=== PATIENT | male | born 1970 | race Caucasian/White ===

== ENCOUNTER 2018-03-19 16:18 | Emergency (ER) | payer SELFPAY ==
[2018-03-19 18:06] LABS: ANION GAP 15.5 mmol/L (10-20); CHLORIDE,CL 101 mmol/L (98-107); SODIUM,NA 139 mmol/L (136-145)
--- NOTE | 2018-03-19 18:08 | EDM.PDOC ---
ED HPI GENERAL MEDICAL PROBLEM - General Chief Complaint: Cardiovascular Problem Stated Complaint: Irregular heart beat Time Seen by Provider: 03/19/18 17:02 Source of Information: Reports: Patient, Family, RN, RN Notes Reviewed History Limitations: Reports: No Limitations - History of Present Illness INITIAL COMMENTS - FREE TEXT/NARRATIVE: Patient is brought to the ED at [facility] for an irregular heart beat. According to the patients mother, the patient has been having an irregular heart beat "for a while." They have been in contact with [facility] who felt he "needed to be checked out." Patient underwent a right ankle surgery last December. He had been on Lovenox for 14 days after he had ankle surgery. Patient has been stable otherwise. He denies any chest pain or SOB. No focal neurological changes or deficits. He has had issues with lymphedema and is under treatment for that. Mother states they are here to make sure "everything is ok." Onset: Unknown/Unsure - Related Data Allergies Allergy/AdvReac Type Severity Reaction Status Date / Time No Known Allergies Allergy Verified 03/19/18 16:33 Home Meds: Home Meds Aspirin [Adult Low Dose Aspirin EC] 81 mg PO DAILY 03/19/18 [History] Carvedilol [Coreg] 12.5 mg PO BID 03/19/18 [History] Lisinopril/Hydrochlorothiazide [Lisinopril-HCTZ 10-12.5 MG] 1 tab PO DAILY 03/19 [History] oxyCODONE 5 mg PO Q4H PRN 03/19/18 [History] Past Medical History Cardiovascular History: Reports: Afib, Hypertension Respiratory History: Reports: Sleep Apnea Musculoskeletal History: Reports: Fracture Endocrine/Metabolic History: Reports: Obesity/BMI 30+ - Past Surgical History Musculoskeletal Surgical History: Reports: Other (See Below) Other Musculoskeletal Surgeries/Procedures:: ORIF right tib/fib, external fixation right ankle Social & Family History - Tobacco Use Smoking Status *Q: Former Smoker Used Tobacco, but Quit: Yes Month/Year Tobacco Last Used: 0 ED ROS GENERAL - Review of Systems Review Of Systems: See Below Constitutional: Denies: Fever, Chills, Weakness Respiratory: Denies: Shortness of Breath, Cough Cardiovascular: Reports: Edema (chronic 2/2 to right ankle surgery). Denies: Chest Pain, Palpitations GI/Abdominal: Denies: Abdominal Pain, Nausea, Vomiting Skin: Reports: No Symptoms (that are new or recent) Neurological: Denies: Dizziness, Headache, Numbness, Paresthesia, Tingling ED EXAM, GENERAL - Physical Exam Exam: See Below Exam Limited By: No Limitations General Appearance: Alert, No Apparent Distress Respiratory/Chest: No Respiratory Distress, Lungs Clear, Normal Breath Sounds Cardiovascular: Normal Peripheral Pulses, No Murmur, Irregularly Irregular Peripheral Pulses: 2+: Radial (L), Radial (R) GI/Abdominal: Normal Bowel Sounds, Soft, Non-Tender Neurological: Alert, Oriented Skin Exam: Warm, Dry, Intact, Normal Color EKG INTERPRETATION EKG Date: 03/19/18 Time: 16:22 Rhythm: A-Fib Rate (Beats/Min): 71 [place]: Normal P-Wave: Present QRS: Normal ST-T: Depressed QT: Normal [place]/PQ Interval: Absent Comparison: NA - No Prior EKG EKG Interpretation Comments: 1. Controlled Atrial Fibrillation 2. Moderate ST depression Course - Vital Signs Last Recorded V/S: Last Vital Signs Temp 36.6 C 03/19/18 16:20 Pulse 73 03/19/18 16:20 Resp 18 03/19/18 16:20 BP 145/94 H 03/19/18 16:20 Pulse Ox 97 03/19/18 16:20 - Orders/Labs/Meds Orders: Active Orders 24 hr Category Date Time Status COMPREHENSIVE METABOLIC PN,CMP [CHEM] Stat Lab 03/19/18 17:39 Received CREATINE KINASE,CK [CHEM] Stat Lab 03/19/18 17:39 Received TROPONIN I [CHEM] Stat Lab 03/19/18 17:39 Received Labs: Laboratory Tests 03/19/18 03/19/18 Range/Units 17:39 17:39 WBC 7.5 (4.0-10.0) x10^3/uL RBC 4.76 (4.5-6.0) x10^6/uL Hgb 13.9 L (14.0-18.0) g/dL Hct 40.2 (40.0-52.0) % MCV 84.5 (78.0-93.0) fL MCH 29.2 (26.0-32.0) pg MCHC 34.6 (32.0-36.0) g/dL RDW Coeff of Doni 14.1 (10.0-15.0) % Plt Count 281 (130-400) x10^3/uL Neut % (Auto) 50.7 (50.0-80.0) % Lymph % (Auto) 31.2 (25.0-50.0) % [place] % (Auto) 12.7 H (2.0-11.0) % Eos % (Auto) 4.7 H (0.0-4.0) % Baso % (Auto) 0.7 (0.2-1.2) % PT 11.9 H (9.6-11.4) SEC INR 1.1 L (2.0-3.5) Departure - Departure Time of Disposition: 18:09 Disposition: Home, Self-Care 01 Reason for Transfer *Q: Other Condition: Good Clinical Impression: Controlled atrial fibrillation Instructions: Atrial Fibrillation Referrals: Henry Villeda MD [Primary Care Provider] - Additional Instructions: 1. Stay well hydrated and rest 2. Would recommend increasing Aspirin to 325 mg daily 3. No changes with any other medications 4. Make appointment with PCP to decided if primary anticoagulation is necessary 5. All blood work was normal, which is great news - Problem List Review Problem List Initiated/Reviewed/Updated: Yes - My Orders Last 24 Hours: My Active Orders 03/19/18 17:39 COMPREHENSIVE METABOLIC PN,CMP [CHEM] Stat CREATINE KINASE,CK [CHEM] Stat TROPONIN I [CHEM] Stat - Assessment/Plan Last 24 Hours: My Active Orders 03/19/18 17:39 COMPREHENSIVE METABOLIC PN,CMP [CHEM] Stat CREATINE KINASE,CK [CHEM] Stat TROPONIN I [CHEM] Stat Assessment:: Controlled Atrial Fibrillation Plan: Blood work is all ok. Would recommend at this time to increase ASA to 325 mg daily and follow up with PCP for more definitive treatment. Patient has been completely asymptomatic while in the ER. No interventions warrant on an emergent basis.
== END 2018-03-19 18:20 | disposition home or self-care (01) ==
LOC: VM.ED 16:18
DX: I48.91 Unspecified atrial fibrillation (principal); I10 Essential (primary) hypertension; E66.9 Obesity, unspecified; Z87.891 Personal history of nicotine dependence; Z79.82 Long term (current) use of aspirin; Z79.899 Other long term (current) drug therapy
CPT/HCPCS: 36415; 80053; 82550; 84484; 85025; 85610; 93005; 99284